=== PATIENT | female | born 1995 | race American Indian/Alaskan Native ===

== ENCOUNTER 2016-11-03 15:02 | Outpatient (CLI) | payer MEDICAID ==
[2016-11-03 16:51] VITALS: BP 128/64
== END 2016-11-03 17:37 | disposition home or self-care (01) ==
LOC: TRG 15:02
PROVIDERS: ATTEND Obstetrics & Gynecology
DX: O47.1 False labor at or after 37 completed weeks of gestation (principal); Z3A.37 37 weeks gestation of pregnancy
CPT/HCPCS: 59025

== ENCOUNTER 2016-11-12 21:53 | Outpatient (CLI) | payer MEDICAID ==
[2016-11-12 22:16] VITALS: BP 125/80
== END 2016-11-12 22:46 | disposition home or self-care (01) ==
LOC: TRG 21:53
PROVIDERS: ATTEND Obstetrics & Gynecology
DX: O47.1 False labor at or after 37 completed weeks of gestation (principal); Z3A.38 38 weeks gestation of pregnancy
CPT/HCPCS: 59025

== ENCOUNTER 2016-11-16 01:24 | Inpatient (IN) | payer MEDICAID ==
[2016-11-16] MEDS ORDERED: LACTATED RINGERS 2,000 ML ONE (04:54)
[2016-11-16] MEDS ORDERED: SUBLIMAZE ONE (05:43)
[2016-11-16] MEDS ORDERED: SUBLIMAZE IV ONE (05:46)
[2016-11-16] MEDS ORDERED: LACTATED RINGERS 1,000 ML IV ONE (05:46)
--- NOTE | 2016-11-16 06:13 | History and Physical Report ---
History of Present Illness Date of examination: 11/16/16 Date of admission: 11/16/16 04:45 Chief complaint: Painful contractions History of present illness: 21 y/o at 39+1 weeks gestation presents in active labor, she is a [facility] patient. course has been unremarkable per patient. 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 denies: gonorrhea, hepatitis B, hepatitis C, herpes, HIV, syphilis Social history: single, full code. denies: smoking, alcohol abuse, prescription drug abuse, IV drug use - Obstetrical History Expected Date of Delivery: 11/22/16 Actual Gestation: 39 Week(s) 1 Day(s) : 1 Para: 0 Medications and Allergies Allergies Allergy/AdvReac Type Severity Reaction Status Date / Time No Known Allergies Allergy Verified 11/03/16 16:36 Home Medications Medication Instructions Recorded Confirmed Last Taken Type Amoxicillin PO Q8HR 11/16/16 11/15/16 20:00 History Active Meds: Active Medications Lactated Ringer's (Lactated Ringers) 1,000 mls @ 999 mls/hr IV BOLUS ONE Stop: 11/16/16 06:46 Last Admin: 11/16/16 06:06 Dose: 999 mls/hr Measles/Mumps/Rubella Vaccine Live (M-M-R Ii Vaccine) 0.5 ml SUB-Q .ONCE ONE Stop: 11/17/16 06:01 Review of Systems Constitutional: no fever, no chills, no weakness, no chronic headaches Cardiovascular: no chest pain, no orthopnea, no palpitations, no syncope, no lightheadedness, no shortness of breath, no dyspnea on exertion, no high blood pressure Respiratory: no cough with sputum, no shortness of breath, no dyspnea on exertion Gastrointestinal: abdominal pain (Painful regular contractions), no nausea, no vomiting Genitourinary: no vaginal bleeding, no vaginal discharge, no leakage of fluid - Vital Signs Vital signs: Vital Signs Temp Resp 97.0 F L 18 11/16/16 05:09 11/16/16 05:09 Temp Pulse Resp BP Pulse Ox 97.0 F L 90 18 133/85 11/16/16 05:09 11/16/16 05:38 11/16/16 05:59 11/16/16 05:38 - Physical Exam Abdomen: Positive: normal appearance, soft. Negative: distention, tenderness, guarding, rigidity Genitourinary (Female): Positive: normal external genitalia Uterus: Positive: enlarged (EFW ~ 3400) Extremities: Positive: normal - Obstetrical FHR: category 1 Cervical Dilatation: 5 (per RN exam) Results All other labs normal. Assessment and Plan A: 21 y/o at 39+1 wks presents in active labour -cat 1 tracing P: -Admit -Obtain routine labs -Epidural when necessary -Anticipate normal vaginal delivery - Patient Problems (1) 39 weeks gestation of Current Visit: Yes Status: Acute (2) Active labor at term Current Visit: Yes Status: Acute
[2016-11-16] MEDS ORDERED: BRETHINE SUB-Q PRN (06:14)
[2016-11-16] MEDS ORDERED: MINERAL OIL PO PRN (06:14)
[2016-11-16] MEDS ORDERED: ePHEDrine SULFATE IV PRN ×2 (06:14→06:59)
[2016-11-16] MEDS ORDERED: BRETHINE IVP PRN (06:14)
[2016-11-16] MEDS ORDERED: XYLOCAINE 2% INFILTRATI ONE (06:14)
[2016-11-16 06:56] LABS: Mean Corpuscular HGB Conc 30 % (30-34); Mean Corpuscular Volume 76 fl (79-97); Red Blood Count 3.78 M/mm3 (3.65-5.03); Red Cell Distribution Width 17.6 % (13.2-15.2); White Blood Count 14.3 K/mm3 (4.5-11.0)
--- NOTE | 2016-11-16 06:58 | Anesthesia Consultation ---
Anesthesia Consult and Med Hx Date of service: 11/16/16 - Airway Anesthetic Teeth Evaluation: Good ROM Head & Neck: Adequate Mental/Hyoid Distance: Adequate Mallampati Class: Class II Intubation Access Assessment: Probably Good - Pre-Operative Health Status ASA Pre-Surgery Classification: ASA2 Proposed Anesthetic Plan: Epidural, Spinal - Pulmonary Hx Asthma: No COPD: No Hx Pneumonia: No - Cardiovascular System Hx Hypertension: No - Central Nervous System Hx Seizures: No Hx Psychiatric Problems: No - Endocrine Hx Renal Disease: No Hx End Stage Renal Disease: No Hx Hypothyroidism: No Hx Hyperthyroidism: No - Hematic Hx Anemia: Yes Hx Sickle Cell Disease: No - Other Systems Hx Alcohol Use: No
[2016-11-16] MEDS ORDERED: NARCAN 2 MG/2 ML IV PRN (06:59)
[2016-11-16] MEDS ORDERED: PITOCin/NS 30 UNIT/500ML 30 UNITS/500 ML BAG IV SCH ×2 (07:00)
[2016-11-16] MEDS ORDERED: PITOCin/NS 20 UNIT/1000ML DRIP 20 UNITS/1,000 ML BAG IV SCH ×2 (07:00→15:00)
[2016-11-16] MEDS ORDERED: fentaNYL-BUPIV 2 MCG/ML-0.125% 200 MCG/100 ML BAG EPIDURAL SCH (07:00)
[2016-11-16] MEDS ORDERED: LACTATED RINGERS 1,000 ML IV SCH (07:00)
[2016-11-16 07:17] LABS: Hematocrit 28.6 % (30.3-42.9); Hemoglobin 8.5 gm/dl (10.1-14.3); Mean Corpuscular Hemoglobin 23 pg (28-32)
[2016-11-16] MEDS ORDERED: ePHEDrine SULFATE ONE (07:23)
[2016-11-16] MEDS ORDERED: ZOFRAN ONE (09:17)
[2016-11-16] MEDS ORDERED: ZOFRAN IV PRN ×2 (10:00→14:28)
[2016-11-16 12:03] LABS: Platelet Count 195 K/mm3 (140-440)
--- NOTE | 2016-11-16 14:27 | Procedure Note ---
OB Delivery Note - Delivery Date of Delivery: 11/16/16 Surgeon: JENNY WHALEN Estimated blood loss: 200cc - Vaginal Delivery presentation: vertex Delivery position: OA Intrapartum events: none Delivery induction: none Delivery augmentation: rupture of membranes Delivery monitor: external FHT, external uterine Route of delivery: Delivery placenta: spontaneous Delivery cord: nuchal cord, 3 umbilical vessels Episiotomy: none Delivery laceration: 1st degree (left labial - not bleeding, not repaired) Anesthesia: epidural - Infant A at 1 minute: 8 at 5 minutes: 9 Infant Gender: Male (2982gms)
[2016-11-16] MEDS ORDERED: LANSINOH TP PRN (14:28)
[2016-11-16] MEDS ORDERED: NORCO 5/325 PO PRN (14:28)
[2016-11-16] MEDS ORDERED: DULCOLAX PR PRN (14:28)
[2016-11-16] MEDS ORDERED: TUCKS PAD TP PRN (14:28)
[2016-11-16] MEDS ORDERED: BENADRYL PO PRN (14:28)
[2016-11-16] MEDS ORDERED: DERMOPLAST TP PRN (14:28)
[2016-11-16] MEDS ORDERED: MILK OF MAGNESIA PO PRN (14:28)
[2016-11-16] MEDS ORDERED: PHENERGAN PO PRN (14:28)
[2016-11-16] MEDS ORDERED: PHENERGAN PR PRN (14:28)
[2016-11-16] MEDS ORDERED: TYLENOL PO PRN (14:28)
[2016-11-16] MEDS ORDERED: SODIUM CHLORIDE FLUSH SYRINGE 10 ML IV NR (15:00)
[2016-11-16] MEDS: MOTRIN PO SCH (22:20)
[2016-11-16] MEDS: COLACE PO SCH (22:21)
[2016-11-16] MEDS: FEOSOL PO SCH (22:21)
[2016-11-17 03:15] LABS: Hematocrit 24.9 % (30.3-42.9); Hemoglobin 7.5 gm/dl (10.1-14.3)
[2016-11-17] MEDS: MOTRIN PO SCH ×2 (04:02→09:00)
[2016-11-17] MEDS ORDERED: M-M-R II VACCINE SUB-Q ONE (06:00)
[2016-11-17] MEDS: PRENATAL VITAMIN PO SCH (09:16)
[2016-11-17] MEDS: COLACE PO SCH ×2 (09:16→22:00)
[2016-11-17] MEDS: FEOSOL PO SCH ×2 (09:16→22:00)
--- NOTE | 2016-11-17 10:36 | Progress Note ---
Assessment and Plan - Patient Problems (1) (normal spontaneous vaginal delivery) Onset Date: 11/17/16 Current Visit: Yes Status: Resolved Plan to address problem: A: s/p - PPD #1 Doing well Asymptomatic anemia P: May go home tomorrow Subjective - Subjective Date of service: 11/17/16 Principal diagnosis: s/p - PPD #1 Interval history: Pt is feeling well without complaints. Bleeding improved. Patient reports: appetite normal, voiding normally, pain well controlled, flatus , ambulating normally Allyn: doing well, bottle feeding Objective - Vital Signs Latest vital signs: Vital Signs Temp Pulse Pulse Pulse Resp BP BP 11/17/16 07:50 98.2 F 74 16 110/74 11/17/16 01:00 98.1 F 81 18 11/16/16 22:20 18 11/16/16 19:50 99.2 F 102 H 18 11/16/16 16:25 99.4 F 88 20 11/16/16 16:00 99.6 F 18 11/16/16 15:50 91 H 129/73 11/16/16 15:35 109 H 128/77 11/16/16 15:20 96 H 129/74 11/16/16 15:05 105 H 125/75 11/16/16 14:50 106 H 126/73 11/16/16 14:35 110 H 135/78 11/16/16 14:20 99.1 F 107 H 18 158/90 11/16/16 14:05 115 H 141/91 11/16/16 13:50 94 H 135/75 11/16/16 13:36 146 H 125/91 11/16/16 13:20 118 H 158/77 11/16/16 13:05 117 H 172/74 11/16/16 13:03 131 H 193/97 11/16/16 13:01 146 H 207/94 11/16/16 12:59 123 H 177/93 11/16/16 12:56 108 H 150/83 11/16/16 12:54 110 H 141/76 11/16/16 12:52 112 H 139/77 11/16/16 12:50 115 H 141/83 11/16/16 12:49 99.9 F H 18 11/16/16 12:48 107 H 141/83 11/16/16 12:47 100 H 142/69 11/16/16 12:44 122 H 140/84 11/16/16 12:43 109 H 129/81 11/16/16 12:40 118 H 164/85 11/16/16 12:38 121 H 160/80 11/16/16 12:36 99 H 151/85 11/16/16 12:34 112 H 145/82 11/16/16 12:32 114 H 141/78 11/16/16 12:30 105 H 144/80 11/16/16 12:28 107 H 144/82 11/16/16 12:26 115 H 145/89 11/16/16 12:24 107 H 142/91 11/16/16 12:22 115 H 140/95 11/16/16 12:20 115 H 144/99 11/16/16 12:18 106 H 138/88 11/16/16 12:16 115 H 140/85 11/16/16 12:14 103 H 133/83 11/16/16 12:12 111 H 144/91 11/16/16 12:10 116 H 146/94 11/16/16 12:09 111 H 138/88 11/16/16 12:06 106 H 142/65 11/16/16 12:04 113 H 134/70 11/16/16 12:02 117 H 148/73 11/16/16 12:00 108 H 153/76 11/16/16 11:58 109 H 150/70 11/16/16 11:56 101 H 145/69 11/16/16 11:54 105 H 147/66 11/16/16 11:52 112 H 154/72 11/16/16 11:50 104 H 145/67 11/16/16 11:48 102 H 150/68 11/16/16 11:46 108 H 142/67 11/16/16 11:44 103 H 144/71 11/16/16 11:42 111 H 145/71 11/16/16 11:40 111 H 143/68 11/16/16 11:38 105 H 146/69 11/16/16 11:36 106 H 139/60 11/16/16 11:34 99 H 145/69 11/16/16 11:32 100 H 147/69 11/16/16 11:30 102 H 142/68 11/16/16 11:28 100 H 140/68 11/16/16 11:26 101 H 140/71 11/16/16 11:24 101 H 142/74 11/16/16 11:22 100 H 146/75 11/16/16 11:20 105 H 140/71 11/16/16 11:18 96 H 141/65 11/16/16 11:17 106 H 141/65 11/16/16 11:15 112 H 137/56 11/16/16 11:13 111 H 139/67 11/16/16 11:10 106 H 138/77 11/16/16 11:09 104 H 134/86 11/16/16 11:08 108 H 11/16/16 11:07 95 H 128/60 11/16/16 11:04 102 H 134/73 11/16/16 11:03 101 H 11/16/16 11:02 102 H 127/71 11/16/16 11:00 100 H 130/75 11/16/16 10:58 98 H 128/72 11/16/16 10:56 101 H 132/75 11/16/16 10:54 100 H 132/71 11/16/16 10:53 94 H 11/16/16 10:52 99 H 127/71 11/16/16 10:50 100 H 128/67 11/16/16 10:48 91 H 131/69 11/16/16 10:46 95 H 126/68 11/16/16 10:44 92 H 130/71 11/16/16 10:43 92 H 11/16/16 10:42 92 H 127/71 11/16/16 10:40 99 H 128/71 11/16/16 10:38 96 H 125/69 11/16/16 10:36 91 H 124/69 11/16/16 10:34 96 H 126/68 11/16/16 10:33 91 H BP Pulse Ox 11/17/16 07:50 11/17/16 01:00 119/63 11/16/16 22:20 11/16/16 19:50 126/68 11/16/16 16:25 135/77 11/16/16 16:00 11/16/16 15:50 11/16/16 15:35 11/16/16 15:20 11/16/16 15:05 11/16/16 14:50 11/16/16 14:35 11/16/16 14:20 11/16/16 14:05 11/16/16 13:50 11/16/16 13:36 11/16/16 13:20 11/16/16 13:05 11/16/16 13:03 11/16/16 13:01 11/16/16 12:59 11/16/16 12:56 11/16/16 12:54 11/16/16 12:52 11/16/16 12:50 11/16/16 12:49 11/16/16 12:48 11/16/16 12:47 11/16/16 12:44 11/16/16 12:43 11/16/16 12:40 11/16/16 12:38 11/16/16 12:36 11/16/16 12:34 11/16/16 12:32 11/16/16 12:30 11/16/16 12:28 11/16/16 12:26 11/16/16 12:24 11/16/16 12:22 11/16/16 12:20 11/16/16 12:18 11/16/16 12:16 11/16/16 12:14 11/16/16 12:12 11/16/16 12:10 11/16/16 12:09 11/16/16 12:06 11/16/16 12:04 11/16/16 12:02 11/16/16 12:00 11/16/16 11:58 11/16/16 11:56 11/16/16 11:54 11/16/16 11:52 11/16/16 11:50 11/16/16 11:48 11/16/16 11:46 11/16/16 11:44 11/16/16 11:42 11/16/16 11:40 11/16/16 11:38 11/16/16 11:36 11/16/16 11:34 11/16/16 11:32 11/16/16 11:30 11/16/16 11:28 11/16/16 11:26 11/16/16 11:24 11/16/16 11:22 11/16/16 11:20 11/16/16 11:18 11/16/16 11:17 11/16/16 11:15 11/16/16 11:13 100 11/16/16 11:10 11/16/16 11:09 11/16/16 11:08 100 11/16/16 11:07 11/16/16 11:04 11/16/16 11:03 100 11/16/16 11:02 11/16/16 11:00 11/16/16 10:58 100 11/16/16 10:56 11/16/16 10:54 11/16/16 10:53 100 11/16/16 10:52 11/16/16 10:50 11/16/16 10:48 100 11/16/16 10:46 11/16/16 10:44 11/16/16 10:43 100 11/16/16 10:42 11/16/16 10:40 11/16/16 10:38 100 11/16/16 10:36 11/16/16 10:34 11/16/16 10:33 100 Intake and Output 11/16/16 11/17/16 11/17/16 22:59 06:59 14:59 Intake Total 1280 120 Output Total 1150 300 Balance 130 120 -300 Intake: IV 800 PITOCin/NS 20 UNIT/1000ML 800 DRIP 20 units In 1,000 ml @ 250 mls/hr IV TITR JANE Rx#:[id number] Intake, Free Water 480 120 Output: Urine 1150 300 Void 1150 300 Other: Total, Output Amount 450 300 # Voids Void 1 - Exam Breasts: Present: deferred Cardiovascular: Present: Regular rate Lungs: Present: Clear to auscultation Abdomen: Present: normal appearance, soft Uterus: Present: normal, firm, fundal height below umbilicus Extremities: Present: normal - Labs Labs: Abnormal lab results 11/17/16 Range/Units 03:02 Hgb 7.5 L (10.1-14.3) gm/dl Hct 24.9 L (30.3-42.9) % Laboratory Tests 11/16/16 11/16/16 11/17/16 04:40 04:40 03:02 WBC 14.3 H RBC 3.78 Hgb 8.5 L 7.5 L Hct 28.6 L 24.9 L MCV 76 L MCH 23 L MCHC 30 RDW 17.6 H Plt Count 195 Blood Type AB POSITIVE Antibody Screen Negative
[2016-11-17] MEDS ORDERED: DEPO-PROVERA (CONTRACEPTION) IM ONE (10:37)
--- NOTE | 2016-11-17 10:53 | Progress Note ---
Subjective Date of service: 11/17/16 Principal diagnosis: s/p - PPD #1 Interval history: 1st day after normal vaginal delivery Patient is in the bed, comfortable. Pain is well controlled with pain meds. Ambulated well. No residual neurological deficit. No anesthesia complications Objective - Constitutional Vitals: Vital Signs - 12hr 11/17/16 11/17/16 01:00 07:50 Temperature 98.1 F 98.2 F Pulse Rate [ 74 Left Radial] Pulse Rate [ 81 Right From Monitor] Respiratory 18 16 Rate Blood Pressure 110/74 [Left Arm] Blood Pressure 119/63 [Right Arm] - Labs CBC & Chem 7: 11/17/16 03:02 Labs: Abnormal lab results 11/17/16 Range/Units 03:02 Hgb 7.5 L (10.1-14.3) gm/dl Hct 24.9 L (30.3-42.9) %
[2016-11-17] MEDS ORDERED: BOOSTRIX IM ONE (14:28)
[2016-11-18] MEDS: MOTRIN PO SCH ×2 (03:00→09:00)
[2016-11-18 08:35] VITALS: BP 120/89
[2016-11-18] MEDS: COLACE PO SCH (10:28)
[2016-11-18] MEDS: FEOSOL PO SCH (10:28)
[2016-11-18] MEDS: PRENATAL VITAMIN PO SCH (10:28)
[2016-11-18] MEDS ORDERED: DEPO-PROVERA (CONTRACEPTION) IM ONE (11:00)
--- NOTE | 2016-11-18 11:29 | Discharge Summary ---
Providers - Providers Date of Admission: 11/16/16 04:45 Date of discharge: 11/18/16 Attending physician: YEFRI BUCK Primary care physician: YEFRI BUCK Hospitalization Reason for admission: active labor, IUP at term Delivery: Episiotomy: none Laceration: 1st degree Other procedures: none complications: none Discharge diagnosis: IUP at term delivered [place] baby: male Hospital course: Unremarkable. Condition at discharge: Good Disposition: DISCHARGED TO HOME OR SELFCARE - Discharge Diagnoses (1) (normal spontaneous vaginal delivery) Status: Resolved Plan - Discharge Medications Prescriptions: Ferrous Sulfate [Feosol 325 MG tab] 325 mg PO BID #60 tablet Ibuprofen [Motrin 600 MG tab] 600 mg PO Q6H #30 tablet Vit-Fe Fumar-FA [ Vitamin] 1 each PO QDAY #30 tablet - Provider Discharge Summary Activity: routine, no sex for 6 weeks, no heavy lifting 4 weeks, no strenuous exercise Diet: routine Instructions: routine Additional instructions: [] Smoking cessation referral if applicable(refer to patient education folder for contact #) [] Refer to [facility]'s [facility] Booklet Call your doctor immediately for: * Fever > 100.5 * Heavy vaginal bleeding ( >1 pad per hour) * Severe persistent headache * Shortness of breath * Reddened, hot, painful area to leg or breast * Drainage or odor from incision. * Keep incision clean and dry at all times and follow doctor's instructions regarding bathing/showering - Follow up plan Follow up: YEFRI BUCK MD [Primary Care Provider] - 6 Weeks Forms: [facility] Discharge Summary
== END 2016-11-18 14:10 | disposition home or self-care (01) | DRG 774 ==
LOC: TRG 01:24 → LD 04:45 → TRG 04:45 → OB 16:26
PROVIDERS: ADMIT Obstetrics & Gynecology Gynecology; ATTEND Obstetrics & Gynecology Gynecology
PROC: 10E0XZZ Delivery of Products of Conception, External Approach (ICD-10-PCS; principal; 2016-11-16)
PROC: 00HU33Z Insertion of Infusion Device into Spinal Canal, Percutaneous Approach (ICD-10-PCS; 2016-11-16)
PROC: 3E0R3CZ (ICD-10-PCS; 2016-11-16)
DX: O69.81X0 Labor and delivery complicated by cord around neck, without compression, not applicable or unspecified (principal); O98.82 Other maternal infectious and parasitic diseases complicating childbirth; O70.0 First degree perineal laceration during delivery; O90.81 Anemia of the puerperium; D64.9 Anemia, unspecified; Z37.0 Single live birth; Z3A.39 39 weeks gestation of pregnancy
CPT/HCPCS: 36415; 85014; 85018; 85027; 86850; 86900; 86901; 90707; J1050; J2405; J2590; J3010; J7120

== ENCOUNTER 2019-11-16 06:49 | Emergency (ER) | payer MEDICAID ==
[2019-11-16 08:54] LABS: Basophils # (Auto) 0.1 K/mm3 (0.0-0.1); Basophils % (Auto) 1.1 % (0.0-1.8); Eosinophils % (Auto) 0.2 % (0.0-4.3); Hematocrit 37.7 % (30.3-42.9); Hemoglobin 12.2 gm/dl (10.1-14.3); Lymphocytes # (Auto) 2.4 K/mm3 (1.2-5.4); Lymphocytes % (Auto) 37.5 % (13.4-35.0); Mean Corpuscular HGB Conc 32 % (30-34); Mean Corpuscular Volume 80 fl (79-97); Monocytes # (Auto) 0.5 K/mm3 (0.0-0.8); Monocytes % (Auto) 7.3 % (0.0-7.3); Platelet Count 190 K/mm3 (140-440); Red Blood Count 4.74 M/mm3 (3.65-5.03)
[2019-11-16 08:56] LABS: Bilirubin,Urine NEG (Negative); Blood,Urine LG (Negative); Color,Urine Yellow (Yellow); Mucus,Urine 1+ /HPF
[2019-11-16 09:08] LABS: RBC,Urine > 182.0 /HPF (0.0-6.0)
[2019-11-16 09:19] LABS: Alanine Aminotransferase 8 units/L (7-56); Albumin 4.5 g/dL (3.9-5); BUN/Creatinine Ratio 24; Blood Urea Nitrogen 12 mg/dL (7-17); Hemolysis Index 9
--- NOTE | 2019-11-16 09:29 | Emergency Department Report ---
ED Female HPI - General Chief complaint: Vaginal Bleeding Stated complaint: MISCARRIAGE Time Seen by Provider: 11/16/19 09:08 Source: patient Mode of arrival: Ambulatory Limitations: No Limitations - History of Present Illness Initial comments: This is a 24-year-old -0-0-1 who presents the ED at approximately 8 weeks states last menstrual period as September 15, 2019. Patient states she received care at [place] [facility] Dr. Moreland as her OB. Patient presents here for vaginal bleeding that began this morning. Patient states she started experiencing light vaginal bleed with no abdominal pain cramping dysuria or fever MD Complaint: vaginal bleeding - Related Data Home Medications Medication Instructions Recorded Confirmed Last Taken Amoxicillin PO Q8HR 11/16/16 11/15/16 20:00 Previous Rx's Medication Instructions Recorded Last Taken Type Ferrous Sulfate [Feosol 325 MG tab] 325 mg PO BID #60 tablet 11/18/16 Unknown Rx Ibuprofen [Motrin 600 MG tab] 600 mg PO Q6H #30 tablet 11/18/16 Unknown Rx Vit-Fe Fumar-FA [ 1 each PO QDAY #30 tablet 11/18/16 Unknown Rx Vitamin] Allergies Allergy/AdvReac Type Severity Reaction Status Date / Time No Known Allergies Allergy Verified 11/03/16 16:36 ED Review of Systems ROS: Stated complaint: MISCARRIAGE Other details as noted in HPI Comment: All other systems reviewed and negative ED Past Medical Hx - Past Medical History Hx Hypertension: No Hx Congestive Heart Failure: No Hx Diabetes: No Hx Deep Vein Thrombosis: No Hx Renal Disease: No Hx Sickle Cell Disease: No Hx Seizures: No Hx Asthma: No Hx COPD: No Hx HIV: No Additional medical history: ADHD - Surgical History Past Surgical History?: No Additional Surgical History: B/L breast lumpectomies (benign) - Social History Smoking Status: Never Smoker Substance Use Type: None - Medications Home Medications: Home Medications Medication Instructions Recorded Confirmed Last Taken Type Amoxicillin PO Q8HR 11/16/16 11/15/16 20:00 History Ferrous Sulfate [Feosol 325 MG tab] 325 mg PO BID #60 tablet 11/18/16 Unknown Rx Ibuprofen [Motrin 600 MG tab] 600 mg PO Q6H #30 tablet 11/18/16 Unknown Rx Vit-Fe Fumar-FA [ 1 each PO QDAY #30 tablet 11/18/16 Unknown Rx Vitamin] ED Physical Exam - General Limitations: No Limitations General appearance: alert, in no apparent distress - Head Head exam: Present: atraumatic, normocephalic - Eye Eye exam: Present: normal appearance - ENT ENT exam: Present: mucous membranes moist - Neck Neck exam: Present: normal inspection - Respiratory Respiratory exam: Present: normal lung sounds bilaterally. Absent: respiratory distress - Cardiovascular Cardiovascular Exam: Present: regular rate, normal rhythm. Absent: systolic murmur, diastolic murmur, rubs, gallop - GI/Abdominal GI/Abdominal exam: Present: soft, normal bowel sounds. Absent: distended, tenderness, guarding, mass - Extremities Exam Extremities exam: Present: normal inspection - Back Exam Back exam: Present: normal inspection, full ROM. Absent: CVA tenderness (R), CVA tenderness (L) - Neurological Exam Neurological exam: Present: alert, oriented X3 - Psychiatric Psychiatric exam: Present: normal affect, normal mood - Skin Skin exam: Present: warm, dry, intact, normal color. Absent: rash ED Course Vital Signs 11/16/19 08:12 Temperature 98.3 F Pulse Rate 91 H Respiratory 17 Rate Blood Pressure 103/57 O2 Sat by Pulse 100 Oximetry ED Medical Decision Making - Lab Data Result diagrams: 11/16/19 08:33 11/16/19 08:33 Laboratory Last Values WBC 6.3 K/mm3 (4.5-11.0) 11/16/19 08:33 RBC 4.74 M/mm3 (3.65-5.03) 11/16/19 08:33 Hgb 12.2 gm/dl (10.1-14.3) 11/16/19 08:33 Hct 37.7 % (30.3-42.9) 11/16/19 08:33 MCV 80 fl (79-97) 11/16/19 08:33 MCH 26 pg (28-32) L 11/16/19 08:33 MCHC 32 % (30-34) 11/16/19 08:33 RDW 13.0 % (13.2-15.2) L 11/16/19 08:33 Plt Count 190 K/mm3 (140-440) 11/16/19 08:33 Lymph % (Auto) 37.5 % (13.4-35.0) H 11/16/19 08:33 [place] % (Auto) 7.3 % (0.0-7.3) 11/16/19 08:33 Eos % (Auto) 0.2 % (0.0-4.3) 11/16/19 08:33 Baso % (Auto) 1.1 % (0.0-1.8) 11/16/19 08:33 Lymph # 2.4 K/mm3 (1.2-5.4) 11/16/19 08:33 [place] # 0.5 K/mm3 (0.0-0.8) 11/16/19 08:33 Eos # 0.0 K/mm3 (0.0-0.4) 11/16/19 08:33 Baso # 0.1 K/mm3 (0.0-0.1) 11/16/19 08:33 Seg Neutrophils % 53.9 % (40.0-70.0) 11/16/19 08:33 Seg Neutrophils # 3.4 K/mm3 (1.8-7.7) 11/16/19 08:33 Sodium 136 mmol/L (137-145) L 11/16/19 08:33 Potassium 3.8 mmol/L (3.6-5.0) 11/16/19 08:33 Chloride 103.0 mmol/L (98-107) 11/16/19 08:33 Carbon Dioxide 20 mmol/L (22-30) L 11/16/19 08:33 Anion Gap 17 mmol/L 11/16/19 08:33 BUN 12 mg/dL (7-17) 11/16/19 08:33 Creatinine 0.5 mg/dL (0.7-1.2) L 11/16/19 08:33 Estimated GFR > 60 ml/min 11/16/19 08:33 BUN/Creatinine Ratio 24 % 11/16/19 08:33 Glucose 82 mg/dL (65-100) 11/16/19 08:33 Calcium 9.0 mg/dL (8.4-10.2) 11/16/19 08:33 Total Bilirubin 0.50 mg/dL (0.1-1.2) 11/16/19 08:33 AST 16 units/L (5-40) 11/16/19 08:33 ALT 8 units/L (7-56) 11/16/19 08:33 Alkaline Phosphatase 32 units/L (35-129) L 11/16/19 08:33 Total Protein 7.5 g/dL (6.3-8.2) 11/16/19 08:33 Albumin 4.5 g/dL (3.9-5) 11/16/19 08:33 Albumin/Globulin Ratio 1.5 % 11/16/19 08:33 HCG, Quant [id number] mIU/mL (0-4) H 11/16/19 08:33 Urine Color Yellow (Yellow) 11/16/19 08:31 Urine Turbidity Clear (Clear) 11/16/19 08:31 Urine pH 6.0 (5.0-7.0) 11/16/19 08:31 Ur Specific [place] 1.027 (1.003-1.030) 11/16/19 08:31 Urine Protein 30 mg/dl mg/dL (Negative) 11/16/19 08:31 Urine Glucose (UA) Neg mg/dL (Negative) 11/16/19 08:31 Urine Ketones Tr mg/dL (Negative) 11/16/19 08:31 Urine Blood Lg (Negative) 11/16/19 08:31 Urine Nitrite Neg (Negative) 11/16/19 08:31 Urine Bilirubin Neg (Negative) 11/16/19 08:31 Urine Urobilinogen 2.0 mg/dL (<2.0) 11/16/19 08:31 Ur Leukocyte Esterase Tr (Negative) 11/16/19 08:31 Urine WBC (Auto) 3.0 /HPF (0.0-6.0) 11/16/19 08:31 Urine RBC (Auto) > 182.0 /HPF (0.0-6.0) 11/16/19 08:31 U Epithel Cells (Auto) 1.0 /HPF (0-13.0) 11/16/19 08:31 Urine Mucus 1+ /HPF 11/16/19 08:31 Blood Type AB POSITIVE 11/16/19 08: Antibody Screen Negative 11/16/19 08:33 - Radiology Data Radiology results: report reviewed, image reviewed ULTRASOUND OBSTETRIC INDICATION: Vaginal bleeding. Clinical gestational age of 8 weeks, 6 days. TECHNIQUE: Transabdominal and Transvaginal. COMPARISON: None available. FINDINGS: GESTATIONAL SAC: Well-defined oval shape and intrauterine in location. A small to moderate subchorionic hemorrhage measures up to 1.4 cm. YOLK SAC: No significant abnormality. EMBRYO/FETUS: No significant abnormality. - [place]-Rump Length = 0.9 cm = 6 weeks, 6 day(s). - Heart Rate = 128 beats per minute. ADNEXA: No significant abnormality. FREE FLUID: None. ADDITIONAL FINDINGS: None. IMPRESSION: 1. Single, living intrauterine with estimated sonographic age of 8 weeks, 2 day(s). 2. Small to moderate subchorionic hemorrhage. Signer Name: Fidel Del Toro MD Signed: 11/16/2019 10:15 AM Workstation Name: [id number] Transcribed By: [place] Dictated By: Fidel Del Toro MD Electronically Authenticated By: Fidel Del Toro MD Signed Date/Time: 11/16/19 1015 - Medical Decision Making 24-year-old female presents to ED with vaginal bleeding in ED course: Pt received ultra sound, CBC, urinalysis, test and quantitative ED All labs within normal limits, quantitative elevated matching gestation age Patient states that bleeding is resolved w a day while in ED ,she is went into the bathroom to check Ultrasound shows single intrauterine at 8 weeks see reported above Vital signs normalized patient is in no acute distress. I discussed with the patient if follow-up with her [facility]. I have discussed with patient to abstain from intercourse until further advised by her [facility] I discussed all labs and ultrasound findings with the patient. I discussed with the patient that he if bleeding worsens or new symptoms develop to return to ED immediately Critical care attestation.: If time is entered above; I have spent that time in minutes in the direct care of this critically ill patient, excluding procedure time. ED Disposition Clinical Impression: Vaginal bleeding during , Subchorionic hemorrhage in first trimester Disposition: DC-01 TO HOME OR SELFCARE Is pt being admited?: No Does the pt Need Aspirin: No Condition: Stable Instructions: Threatened Miscarriage (ED), (ED) Additional Instructions: Make sure to follow up with the obgyn as discussed. Avoid sexual intercourse until you have followed up with your [facility] or further instructed by your [facility]. If bleeding worsens or you start experiencing new onset of symptoms such as abdominal pain please return to ED immediately Referrals: PRIMARY CAREMD [Primary Care Provider] - 3-5 Days [facility] [Outside] - 3-5 Days Forms: Accompanied Note, Work/School Release Form(ED) Time of Disposition: 10:46
--- NOTE | 2019-11-16 10:19 | Ultrasound Report ---
ULTRASOUND OBSTETRIC INDICATION: Vaginal bleeding. Clinical gestational age of 8 weeks, 6 days. TECHNIQUE: Transabdominal and Transvaginal. COMPARISON: None available. FINDINGS: GESTATIONAL SAC: Well-defined oval shape and intrauterine in location. A small to moderate subchorion ic hemorrhage measures up to 1.4 cm. YOLK SAC: No significant abnormality. EMBRYO/FETUS: No significant abnormality. - [place]-Rump Length = 0.9 cm = 6 weeks, 6 day(s). - Heart Rate = 128 beats per minute. ADNEXA: No significant abnormality. FREE FLUID: None. ADDITIONAL FINDINGS: None. IMPRESSION: 1. Single, living intrauterine with estimated sonographic age of 8 weeks, 2 day(s). 2. Small to moderate subchorionic hemorrhage. Signer Name: Fidel Del Toro MD Signed: 11/16/2019 10:15 AM Workstation Name: [id number]
--- NOTE | 2019-11-16 10:19 | Ultrasound Report ---
ULTRASOUND OBSTETRIC INDICATION: Vaginal bleeding. Clinical gestational age of 8 weeks, 6 days. TECHNIQUE: Transabdominal and Transvaginal. COMPARISON: None available. FINDINGS: GESTATIONAL SAC: Well-defined oval shape and intrauterine in location. A small to moderate subchorion ic hemorrhage measures up to 1.4 cm. YOLK SAC: No significant abnormality. EMBRYO/FETUS: No significant abnormality. - [place]-Rump Length = 0.9 cm = 6 weeks, 6 day(s). - Heart Rate = 128 beats per minute. ADNEXA: No significant abnormality. FREE FLUID: None. ADDITIONAL FINDINGS: None. IMPRESSION: 1. Single, living intrauterine with estimated sonographic age of 8 weeks, 2 day(s). 2. Small to moderate subchorionic hemorrhage. Signer Name: Fidel Del Toro MD Signed: 11/16/2019 10:15 AM Workstation Name: [id number]
[2019-11-16 11:15] VITALS: BP 101/61
== END 2019-11-16 11:03 | disposition home or self-care (01) ==
LOC: ED 06:49
DX: O20.9 Hemorrhage in early pregnancy, unspecified (principal); F90.9 Attention-deficit hyperactivity disorder, unspecified type; Z3A.08 8 weeks gestation of pregnancy; Z98.890 Other specified postprocedural states; Z79.1 Long term (current) use of non-steroidal anti-inflammatories (NSAID); Z79.2 Long term (current) use of antibiotics; Z79.899 Other long term (current) drug therapy
CPT/HCPCS: 36415; 76801; 76817; 80053; 81001; 84702; 85025; 86850; 86900; 86901

== ENCOUNTER 2020-05-21 18:26 | Emergency (ER) | payer MEDICAID ==
[2020-05-21 18:43] VITALS: BP 125/91
--- NOTE | 2020-05-21 22:09 | Emergency Department Report ---
ED Dizziness HPI - General Chief Complaint: Headache Stated Complaint: HEADACHE/WATERY EYE/STD Time Seen by Provider: 05/21/20 20:05 Source: patient Mode of arrival: Ambulatory Limitations: No Limitations - History of Present Illness Initial Comments: 25-year-old F [place] female third trimester presents emergency department complaining a few day history of just worsening dull throbbing headache not responding to her fluids however she has not yet tried any [id number] medication she did buy a headache combo medication but did not take it due to her not normal she can take during her . She is due on July 01, 2020 and has been following up with her [facility] . She reports no vaginal bleeding no vaginal discharge no chest pain or palpitations reports no shortness of breath but does get a headache and and dizziness. She reports no hemoptysis no hematemesis no hematuria. MD Complaint: dizziness History of Same: No History of Trauma: No Severity: mild Improves With: rest Worsens With: exertion Associated Symptoms: denies: chest pain, confusion, cough, diaphoresis, fever/chills, loss of appetite, malaise, seizure, shortness of breath, syncope - Related Data Home Medications Medication Instructions Recorded Confirmed Last Taken Amoxicillin PO Q8HR 11/16/16 11/15/16 20:00 Previous Rx's Medication Instructions Recorded Last Taken Type Ferrous Sulfate [Feosol 325 MG tab] 325 mg PO BID #60 tablet 11/18/16 Unknown Rx Ibuprofen [Motrin 600 MG tab] 600 mg PO Q6H #30 tablet 11/18/16 Unknown Rx Vit-Fe Fumar-FA [ 1 each PO QDAY #30 tablet 11/18/16 Unknown Rx Vitamin] Allergies Allergy/AdvReac Type Severity Reaction Status Date / Time No Known Allergies Allergy Verified 11/03/16 16:36 ED Review of Systems ROS: Stated complaint: HEADACHE/WATERY EYE/STD Other details as noted in HPI Comment: All other systems reviewed and negative Genitourinary: other (Was also told she has trichomonas and [facility] in 6 to have her prescriptions filled in the emergency department) ED Past Medical Hx - Past Medical History Previous Medical History?: No Hx Hypertension: No Hx Congestive Heart Failure: No Hx Diabetes: No Hx Deep Vein Thrombosis: No Hx Renal Disease: No Hx Sickle Cell Disease: No Hx Seizures: No Hx Asthma: No Hx COPD: No Hx HIV: No Additional medical history: ADHD - Surgical History Past Surgical History?: Yes Additional Surgical History: B/L breast lumpectomies (benign) - Social History Smoking Status: Never Smoker Substance Use Type: None - Medications Home Medications: Home Medications Medication Instructions Recorded Confirmed Last Taken Type Amoxicillin PO Q8HR 11/16/16 11/15/16 20:00 History Ferrous Sulfate [Feosol 325 MG tab] 325 mg PO BID #60 tablet 11/18/16 Unknown Rx Ibuprofen [Motrin 600 MG tab] 600 mg PO Q6H #30 tablet 11/18/16 Unknown Rx Vit-Fe Fumar-FA [ 1 each PO QDAY #30 tablet 11/18/16 Unknown Rx Vitamin] ED Physical Exam - General Limitations: No Limitations General appearance: alert, in no apparent distress - Head Head exam: Present: atraumatic, normocephalic - Eye Eye exam: Present: normal appearance, PERRL, EOMI Pupils: Present: normal accommodation - ENT ENT exam: Present: mucous membranes moist - Neck Neck exam: Present: normal inspection - Respiratory Respiratory exam: Present: normal lung sounds bilaterally. Absent: respiratory distress - Cardiovascular Cardiovascular Exam: Present: regular rate, normal rhythm. Absent: systolic murmur, diastolic murmur, rubs, gallop - GI/Abdominal GI/Abdominal exam: Present: soft, normal bowel sounds - Extremities Exam Extremities exam: Present: normal inspection - Back Exam Back exam: Present: normal inspection - Neurological Exam Neurological exam: Present: alert, oriented X3 - Psychiatric Psychiatric exam: Present: normal affect, normal mood - Skin Skin exam: Present: warm, dry, intact, normal color. Absent: rash ED Course Vital Signs 05/21/20 18:41 Temperature 97.6 F Pulse Rate 103 H Respiratory 16 Rate Blood Pressure 125/91 [Right] O2 Sat by Pulse 100 Oximetry Critical care attestation.: If time is entered above; I have spent that time in minutes in the direct care of this critically ill patient, excluding procedure time. ED Disposition Condition: Stable Referrals: PRIMARY CARE, [Primary Care Provider] - 3-5 Days
[2020-05-21 22:25] LABS: Basophils % (Auto) 0.3 % (0.0-1.8); Eosinophils % (Auto) 0.3 % (0.0-4.3); Hematocrit 33.4 % (30.3-42.9); Hemoglobin 10.3 gm/dl (10.1-14.3); Lymphocytes # (Auto) 2.6 K/mm3 (1.2-5.4); Lymphocytes % (Auto) 23.3 % (13.4-35.0); Mean Corpuscular HGB Conc 31 % (30-34); Mean Corpuscular Volume 77 fl (79-97); Monocytes # (Auto) 0.8 K/mm3 (0.0-0.8); Monocytes % (Auto) 7.6 % (0.0-7.3); Platelet Count 289 K/mm3 (140-440); Red Blood Count 4.36 M/mm3 (3.65-5.03); Red Cell Distribution Width 15.5 % (13.2-15.2)
[2020-05-21 22:28] LABS: Blood Urea Nitrogen 5 mg/dL (7-17); Hemolysis Index 1
[2020-05-21 22:29] LABS: BUN/Creatinine Ratio 13
== END 2020-05-21 23:00 | disposition left against medical advice (07) ==
LOC: ED 18:26
DX: R51 Headache (principal); Z53.21 Procedure and treatment not carried out due to patient leaving prior to being seen by health care provider
CPT/HCPCS: 36415; 80048; 85025

== ENCOUNTER 2020-06-13 15:25 | Inpatient (IN) | payer MEDICAID ==
--- NOTE | 2020-06-13 21:53 | History and Physical Report ---
History of Present Illness Date of examination: 06/13/20 Chief complaint: Pt presents to [facility] ob triage with c/o uc times several hours. She denies leakage of vag fluid or vag bleeding and admits to + FM. History of present illness: 25 y/o AA female presents to [facility] ob triage at 37 3/7 wks with c/o uc times several hours. Pt states she initiated her pnc at [facility] at 6 wks. She states her preg was uneventful. Pt is not aware of her GBS status. She was found to be in active labor and was admitted to L&D. Pt's records are not available. Past History Past Medical History: no pertinent history Past Surgical History: other (breast biopsy in 2014) Family/Genetic History: diabetes, heart disease, hypertension Social history: no significant social history - Obstetrical History Expected Date of Delivery: 07/01/20 Actual Gestation: 37 Week(s) 3 Day(s) : 2 Para: 1 Hx # Term Pregnancies: 1 Medications and Allergies Allergies Allergy/AdvReac Type Severity Reaction Status Date / Time No Known Allergies Allergy Verified 11/03/16 16:36 Home Medications Medication Instructions Recorded Confirmed Last Taken Type Amoxicillin PO Q8HR 11/16/16 11/15/16 20:00 History Ferrous Sulfate [Feosol 325 MG tab] 325 mg PO BID #60 tablet 11/18/16 Unknown Rx Ibuprofen [Motrin 600 MG tab] 600 mg PO Q6H #30 tablet 11/18/16 Unknown Rx Vit-Fe Fumar-FA [ 1 each PO QDAY #30 tablet 11/18/16 Unknown Rx Vitamin] Review of Systems All systems: negative Eyes: deferred Ears, nose, mouth and throat: deferred Breasts: normal Genitourinary: normal appearance Rectal Exam: deferred - Vital Signs Vital signs: Vital Signs Pulse BP 87 110/67 06/13/20 16:14 06/13/20 16:14 Temp Pulse Resp BP Pulse Ox 98.5 F 87 20 110/67 06/13/20 16:17 06/13/20 16:14 06/13/20 16:17 06/13/20 16:14 - Physical Exam Breasts: Positive: normal Cardiovascular: Regular rate Lungs: Positive: Clear to auscultation Abdomen: Positive: normal appearance, soft, normal bowel sounds, other (gravid) Genitourinary (Female): Positive: normal external genitalia, normal perenium Vulva: both: normal Vagina: Positive: normal moisture Uterus: Positive: normal size, normal contour, other (gravid) Adnexa: both: normal Anus/Rectum: Positive: normal perianal skin Extremities: Positive: normal - Obstetrical FHR: auscultation normal, category 1 Uterine Contraction Monitor Mode: External Cervical Dilatation: 4 Cervical Effacement Percentage: 60 station: -1 Uterine Contraction Frequency (min): irreg Uterine Contraction Pattern: Irregular Uterine Tone Measurement Phase: Resting Uterine Contraction Intensity: Mild Results All other labs normal. Assessment and Plan A:IUP@ 37. 3 wks GBS unknown P: Admit to L&D Continuous monitoring GBS prophylaxis Pain med/Epidural prn Anticipate - Patient Problems (1) Active labor at term Current Visit: No Status: Acute (2) GBS screening not performed Current Visit: Yes Status: Acute
[2020-06-13] MEDS ORDERED: MINERAL OIL 30 ML ORAL LIQD PO PRN (22:23)
[2020-06-13] MEDS ORDERED: BUTORPHANOL 2 MG/1 ML INJ IV PRN ×2 (22:23)
[2020-06-13] MEDS ORDERED: ePHEDrine SULFATE 50 MG/1 ML INJ IV PRN (22:23)
[2020-06-13] MEDS ORDERED: LIDOCAINE (2%) 20 MG/1 ML VIAL 20 ML MDV INFILTRATI ONE (22:23)
[2020-06-13] MEDS ORDERED: ONDANSETRON 4 MG/2 ML INJ IV PRN (22:23)
[2020-06-13] MEDS ORDERED: TERBUTALINE 1 MG/1 ML INJ SUB-Q PRN (22:23)
[2020-06-13] MEDS ORDERED: fentaNYL 100 MCG/2 ML INJ IV PRN (22:23)
[2020-06-13] MEDS ORDERED: OXYTOCIN DRIP 30 UNITS/500 ML BAG IV SCH ×2 (23:00)
[2020-06-13] MEDS: LACTATED RINGERS 1,000 ML IV SCH (23:00)
[2020-06-13 23:49] LABS: Hematocrit 32.1 % (30.3-42.9); Hemoglobin 9.8 gm/dl (10.1-14.3); Mean Corpuscular HGB Conc 31 % (30-34); Mean Corpuscular Volume 73 fl (79-97); Platelet Count 304 K/mm3 (140-440); Red Blood Count 4.39 M/mm3 (3.65-5.03); Red Cell Distribution Width 17.3 % (13.2-15.2)
[2020-06-14] MEDS: LACTATED RINGERS 1,000 ML IV SCH (03:47)
[2020-06-14] MEDS ORDERED: AMPICILLIN/NS 2 GM/100 ML 2 GM/100 ML BAG IV ONE (04:26)
[2020-06-14] MEDS ORDERED: ceFAZolin/NS 1 GM/50 ML 1 GM/50 ML BAG IV SCH (06:00)
--- NOTE | 2020-06-14 07:23 | Progress Note ---
Assessment and Plan A: IUP@term GBS unknown P: Continue monitoring AROM cl fluid Anticipate - Patient Problems (1) Active labor at term Current Visit: No Status: Acute (2) GBS screening not performed Current Visit: Yes Status: Acute Subjective - Subjective Date of service: 06/14/20 Interval history: 25 y/o AA female presents to [facility] ob triage at 37 3/7 wks with c/o uc times several hours. Pt states she initiated her pnc at [facility] at 6 wks. She states her preg was uneventful. Pt is not aware of her GBS status. She was found to be in active labor and was admitted to L&D. Pt's records are not available. Patient reports: movement normal Objective - Vital Signs Vital Signs: Vital Signs - 12hr 06/13/20 06/13/20 06/13/20 22:45 23:36 23:41 Temperature 99.1 F Pulse Rate 85 89 85 Respiratory 18 Rate Blood Pressure 119/76 [Right] O2 Sat by Pulse 100 100 100 Oximetry 06/13/20 06/13/20 06/13/20 23:44 23:46 23:51 Temperature Pulse Rate 83 91 H 85 Respiratory Rate Blood Pressure [Right] O2 Sat by Pulse 92 100 100 Oximetry 06/13/20 06/14/20 06/14/20 23:56 00:01 00:06 Temperature Pulse Rate 84 84 87 Respiratory Rate Blood Pressure [Right] O2 Sat by Pulse 100 100 100 Oximetry 06/14/20 06/14/20 06/14/20 00:09 00:11 00:16 Temperature Pulse Rate 93 H 87 84 Respiratory Rate Blood Pressure [Right] O2 Sat by Pulse 88 98 100 Oximetry 06/14/20 06/14/20 06/14/20 00:21 00:26 00:31 Temperature Pulse Rate 87 89 84 Respiratory Rate Blood Pressure [Right] O2 Sat by Pulse 100 100 100 Oximetry 06/14/20 06/14/20 06/14/20 00:36 00:41 00:46 Temperature Pulse Rate 84 89 87 Respiratory Rate Blood Pressure [Right] O2 Sat by Pulse 98 100 98 Oximetry 06/14/20 06/14/20 06/14/20 00:51 00:56 01:01 Temperature Pulse Rate 89 90 93 H Respiratory Rate Blood Pressure [Right] O2 Sat by Pulse 98 98 98 Oximetry 06/14/20 06/14/20 06/14/20 01:06 01:11 01:16 Temperature Pulse Rate 91 H 85 79 Respiratory Rate Blood Pressure [Right] O2 Sat by Pulse 98 99 99 Oximetry 06/14/20 06/14/20 06/14/20 01:21 01:26 01:31 Temperature Pulse Rate 81 77 90 Respiratory Rate Blood Pressure [Right] O2 Sat by Pulse 98 99 99 Oximetry 06/14/20 06/14/20 06/14/20 01:36 01:41 01:46 Temperature Pulse Rate 81 80 85 Respiratory Rate Blood Pressure [Right] O2 Sat by Pulse 99 98 99 Oximetry 06/14/20 06/14/20 06/14/20 01:51 01:56 02:01 Temperature Pulse Rate 84 84 79 Respiratory Rate Blood Pressure [Right] O2 Sat by Pulse 99 99 99 Oximetry 06/14/20 06/14/20 06/14/20 02:06 02:11 02:16 Temperature Pulse Rate 84 76 82 Respiratory Rate Blood Pressure [Right] O2 Sat by Pulse 100 100 99 Oximetry 06/14/20 06/14/20 06/14/20 02:21 02:26 02:31 Temperature Pulse Rate 85 79 82 Respiratory Rate Blood Pressure [Right] O2 Sat by Pulse 99 99 99 Oximetry 06/14/20 06/14/20 06/14/20 02:36 02:41 02:46 Temperature Pulse Rate 83 72 87 Respiratory Rate Blood Pressure [Right] O2 Sat by Pulse 100 100 100 Oximetry 06/14/20 06/14/20 06/14/20 02:51 02:56 03:01 Temperature Pulse Rate 75 67 79 Respiratory Rate Blood Pressure [Right] O2 Sat by Pulse 100 100 100 Oximetry 06/14/20 06/14/20 06/14/20 03:06 03:11 03:16 Temperature Pulse Rate 69 69 73 Respiratory Rate Blood Pressure [Right] O2 Sat by Pulse 100 100 100 Oximetry 06/14/20 06/14/20 06/14/20 03:21 03:26 03:31 Temperature Pulse Rate 67 69 68 Respiratory Rate Blood Pressure [Right] O2 Sat by Pulse 100 100 100 Oximetry 06/14/20 06/14/20 06/14/20 03:41 03:46 03:51 Temperature Pulse Rate 79 75 68 Respiratory Rate Blood Pressure [Right] O2 Sat by Pulse 97 97 100 Oximetry 06/14/20 06/14/20 06/14/20 03:56 04:01 04:06 Temperature Pulse Rate 73 71 82 Respiratory Rate Blood Pressure [Right] O2 Sat by Pulse 100 100 100 Oximetry 06/14/20 06/14/20 06/14/20 04:11 04:16 04:21 Temperature Pulse Rate 74 75 74 Respiratory Rate Blood Pressure [Right] O2 Sat by Pulse 100 99 99 Oximetry 06/14/20 06/14/20 06/14/20 04:26 04:31 04:36 Temperature Pulse Rate 83 75 83 Respiratory Rate Blood Pressure [Right] O2 Sat by Pulse 99 99 99 Oximetry 06/14/20 06/14/20 06/14/20 04:41 04:46 04:51 Temperature Pulse Rate 85 79 79 Respiratory Rate Blood Pressure [Right] O2 Sat by Pulse 99 99 99 Oximetry 06/14/20 06/14/20 06/14/20 04:56 05:01 05:06 Temperature Pulse Rate 86 85 84 Respiratory Rate Blood Pressure [Right] O2 Sat by Pulse 99 99 99 Oximetry 06/14/20 06/14/20 06/14/20 05:11 05:16 05:21 Temperature Pulse Rate 84 78 76 Respiratory Rate Blood Pressure [Right] O2 Sat by Pulse 99 99 99 Oximetry 06/14/20 06/14/20 06/14/20 05:26 05:31 05:36 Temperature Pulse Rate 82 77 90 Respiratory Rate Blood Pressure [Right] O2 Sat by Pulse 99 99 99 Oximetry 06/14/20 06/14/20 06/14/20 05:40 05:41 05:46 Temperature Pulse Rate 87 87 75 Respiratory Rate Blood Pressure [Right] O2 Sat by Pulse 93 100 100 Oximetry 06/14/20 06/14/20 06/14/20 05:51 05:56 06:01 Temperature Pulse Rate 75 75 85 Respiratory Rate Blood Pressure [Right] O2 Sat by Pulse 100 100 100 Oximetry 06/14/20 06/14/20 06/14/20 06:05 06:06 06:10 Temperature Pulse Rate 83 87 76 Respiratory Rate Blood Pressure [Right] O2 Sat by Pulse 94 81 L 90 Oximetry 06/14/20 06/14/20 06/14/20 06:11 06:16 06:21 Temperature Pulse Rate 81 88 84 Respiratory Rate Blood Pressure [Right] O2 Sat by Pulse 100 100 100 Oximetry 06/14/20 06/14/20 06/14/20 06:22 06:26 06:29 Temperature Pulse Rate 79 87 92 H Respiratory Rate Blood Pressure [Right] O2 Sat by Pulse 94 84 93 Oximetry 06/14/20 06/14/20 06/14/20 06:31 06:34 06:36 Temperature Pulse Rate 43 L 55 L Respiratory Rate Blood Pressure [Right] O2 Sat by Pulse 74 L 63 L 60 L Oximetry 06/14/20 06/14/20 06/14/20 06:41 06:43 06:46 Temperature Pulse Rate 71 65 79 Respiratory Rate Blood Pressure [Right] O2 Sat by Pulse 75 L 70 L 100 Oximetry 06/14/20 06/14/20 06/14/20 06:48 06:51 06:53 Temperature Pulse Rate 89 85 80 Respiratory Rate Blood Pressure [Right] O2 Sat by Pulse 70 L 98 93 Oximetry 06/14/20 06/14/20 06/14/20 06:56 07:01 07:06 Temperature Pulse Rate 79 72 87 Respiratory Rate Blood Pressure [Right] O2 Sat by Pulse 87 98 98 Oximetry 06/14/20 06/14/20 07:11 07:16 Temperature Pulse Rate 93 H 82 Respiratory Rate Blood Pressure [Right] O2 Sat by Pulse 99 100 Oximetry - Exam Breasts: normal Abdomen: Present: normal appearance, soft, other (GRAVID) Vulva: both: normal Uterus: Present: normal, other (GRAVID) FHR: category 1 Uterine Contraction Monitor Mode: External Cervical Dilatation: 5 Cervical Effacement Percentage: 70 station: -1 Uterine Contraction Frequency (min): IRREG Uterine Contraction Pattern: Irregular Uterine Tone Measurement Phase: Resting Uterine Contraction Intensity: Moderate Extremities: normal - Labs Labs: Abnormal Labs 06/13/20 23:16 WBC 13.2 H Hgb 9.8 L MCV 73 L MCH 22 L RDW 17.3 H Laboratory Results - last 24 hr 06/13/20 06/13/20 06/13/20 23:16 23:16 23:16 WBC 13.2 H RBC 4.39 Hgb 9.8 L Hct 32.1 MCV 73 L MCH 22 L MCHC 31 RDW 17.3 H Plt Count 304 Syphilis IgG Antibody Nonreactive HIV 1&2 Antibody Rapid HIV P24 Antigen Blood Type AB POSITIVE Antibody Screen Negative 06/13/20 23:16 WBC RBC Hgb Hct MCV MCH MCHC RDW Plt Count Syphilis IgG Antibody HIV 1&2 Antibody Rapid Non react HIV P24 Antigen Non react Blood Type Antibody Screen
[2020-06-14] MEDS ORDERED: LIDOCAINE (2%) 20 MG/1 ML VIAL 20 ML MDV INFILTRATI ONE (07:46)
[2020-06-14] MEDS ORDERED: AMPICILLIN/NS 1 GM/50 ML 1 GM/50 ML BAG IV SCH (08:30)
--- NOTE | 2020-06-14 08:45 | Procedure Note ---
OB Delivery Note - Vaginal Delivery presentation: vertex Delivery position: OA Intrapartum events: none Delivery induction: none Delivery augmentation: rupture of membranes, pitocin Delivery monitor: external FHT Route of delivery: Delivery placenta: spontaneous Delivery cord: nuchal cord, 3 umbilical vessels Episiotomy: none Delivery laceration: 1st degree, other (1st degree right labial tear) Delivery repair: vicryl Anesthesia: local, intravenous Delivery comments: Called to for delivery.SVE 10/100%/+1 and pt was pushing. of a live viable female in OA position. Nuchal cord x1 was reduced over infant's head and head followed by shoulders were delivered with ease. was placed on mom's chest for skin to skin bonding. Delayed cord clamping x 90 sec while nurse dried and stimulated baby. Afterwards cord was clamped times 2 and FOB was allowed to cut infant's cord. was then given to awaiting nurse for an asses. 8/9. Spontaneous delivery of intact placenta with CVX3. FF@ U2 with fundal massage and IV Pitocin. Exploration of tears revealed a 1st degree right labial tear which was repaired with a 3-0 vicryl on a CT1. EBL 250cc. FW 5 lbs .4 oz. Mom and baby stable. - Infant A at 1 minute: 8 at 5 minutes: 9 Infant Gender: Female (FW 5lbs .4 oz)
[2020-06-14] MEDS ORDERED: diphenhydrAMINE 25 MG CAP PO PRN (09:00)
[2020-06-14] MEDS ORDERED: PROMETHAZINE 25 MG TAB PO PRN (09:00)
[2020-06-14] MEDS ORDERED: ONDANSETRON 4 MG/2 ML INJ IV PRN (09:00)
[2020-06-14] MEDS ORDERED: LANOLIN/ZINC/DIMETHICONE (LANSINOH) 7 GM TP PRN (09:00)
[2020-06-14] MEDS ORDERED: WITCH HAZEL/ GLYCERIN PAD TP PRN (09:00)
[2020-06-14] MEDS ORDERED: PROMETHAZINE 25 MG RECT SUPP PR PRN (09:00)
[2020-06-14] MEDS ORDERED: OXYTOCIN DRIP 30 UNITS/500 ML BAG IV SCH (11:00)
[2020-06-14] MEDS: IBUPROFEN 600 MG TAB PO SCH ×3 (12:45→22:21)
[2020-06-14] MEDS: FERROUS SULFATE 325 MG TAB PO SCH ×2 (12:45→22:18)
[2020-06-14 19:50] LABS: Hematocrit 28.7 % (30.3-42.9); Hemoglobin 9.1 gm/dl (10.1-14.3)
[2020-06-14] MEDS ORDERED: MAGNESIUM HYDROXIDE (MOM) ORAL LIQD UDC PO PRN (22:00)
[2020-06-15] MEDS: IBUPROFEN 600 MG TAB PO SCH ×3 (06:08→21:38)
--- NOTE | 2020-06-15 12:01 | Progress Note ---
Assessment and Plan A: day 1 S/P . Anemia. P: Iron supplementation. Anticipate discharge home tomorrow if patient continues to do well. Subjective - Subjective Date of service: 06/15/20 Principal diagnosis: day 1 S/P Patient reports: appetite normal, voiding normally, pain well controlled, ambulating normally, no dizzy ambulation, no nauseated [place]: doing well Objective - Vital Signs Latest vital signs: Vital Signs Temp Pulse Resp BP BP Pulse Ox 06/15/20 07:55 97.8 F 82 18 109/68 06/15/20 04:30 98.6 F 74 16 110/67 06/15/20 01:24 97.8 F 82 18 111/69 100 06/14/20 19:30 98.6 F 71 18 102/77 06/14/20 15:54 98.2 F 82 18 103/64 99 Intake and Output 06/14/20 06/15/20 06/15/20 23:59 07:59 15:59 Intake Total 1140 540 120 Balance 1140 540 120 Intake: Oral 480 240 120 Intake, Free Water 660 300 Other: Total, Intake Amount 480 240 120 # Voids Void 1 1 1 - Exam Cardiovascular: Present: Regular rate, No murmurs Lungs: Present: Clear to auscultation Abdomen: Present: normal appearance, soft. Absent: distention, tenderness, guarding, rigidity Uterus: Present: normal, firm, fundal height below umbilicus. Absent: bogginess, tenderness Extremities: Present: normal. Absent: tenderness, edema - Labs Labs: Abnormal lab results 06/14/20 Range/Units 18:49 Hgb 9.1 L (10.1-14.3) gm/dl Hct 28.7 L (30.3-42.9) %
[2020-06-15] MEDS: FERROUS SULFATE 325 MG TAB PO SCH ×2 (13:08→21:37)
[2020-06-15] MEDS: PRENATAL VIT27-FE FUMARATE-FOLIC ACID VIT TAB PO SCH (13:09)
[2020-06-16] MEDS: IBUPROFEN 600 MG TAB PO SCH ×2 (04:17→10:07)
[2020-06-16] MEDS: FERROUS SULFATE 325 MG TAB PO SCH (10:07)
[2020-06-16] MEDS: PRENATAL VIT27-FE FUMARATE-FOLIC ACID VIT TAB PO SCH (10:07)
--- NOTE | 2020-06-16 11:03 | Progress Note ---
Assessment and Plan A: day 2 S/P . Anemia. P: Discharge patient home today. Discussed with patient discharge instructions and warning signs. Advised patient to avoid intercourse, lifting, housework, and driving. Advised patient to continue taking her vitamins and iron supplements at home. Patient voiced understanding of discharge instructions. Subjective - Subjective Date of service: 06/16/20 Principal diagnosis: day 2 S/P Patient reports: appetite normal, voiding normally, pain well controlled, flatus, ambulating normally, no dizzy ambulation, no nauseated [place]: doing well Objective - Vital Signs Latest vital signs: Vital Signs Temp Pulse Resp BP BP Pulse Ox 06/16/20 08:30 97.7 F 72 20 112/76 06/16/20 00:21 98.2 F 78 20 114/41 100 06/15/20 16:15 98 F 86 18 98/76 Intake and Output 06/15/20 06/16/20 06/16/20 23:59 07:59 15:59 Intake Total 680 120 240 Balance 680 120 240 Intake: Oral 320 120 240 Intake, Free Water 360 Other: Total, Intake Amount 320 120 240 # Voids Void 2 2 1 - Exam Cardiovascular: Present: Regular rate, No murmurs Lungs: Present: Clear to auscultation Abdomen: Present: normal appearance, soft, normal bowel sounds. Absent: distention, tenderness, guarding, rigidity Uterus: Present: normal, firm, fundal height below umbilicus. Absent: bogginess, tenderness Extremities: Present: normal. Absent: tenderness, edema
--- NOTE | 2020-06-16 11:05 | Discharge Summary ---
Providers - Providers Date of Admission: 06/13/20 22:24 Date of discharge: 06/16/20 Attending physician: MARIMAR HUSTON JR, MD Primary care physician: MARIMAR HUSTON JR, MD Hospitalization Reason for admission: active labor Delivery: Episiotomy: none Laceration: 1st degree Other procedures: none complications: none Discharge diagnosis: IUP at term delivered [place] baby: female Pertinent studies: Labs Hospital course: Normal hospital course. Condition at discharge: Good Disposition: DC-01 TO HOME OR SELFCARE - Discharge Diagnoses (1) Term delivered Status: Acute (2) Anemia Status: Acute Plan - Provider Discharge Summary Activity: routine, no sex for 6 weeks, no heavy lifting 4 weeks, no strenuous exercise Diet: routine Instructions: routine Additional instructions: Continue taking your vitamins and iron supplements at home. Call your doctor immediately for: * Fever > 100.5 * Heavy vaginal bleeding ( >1 pad per hour) * Severe persistent headache * Shortness of breath * Reddened, hot, painful area to leg or breast - Follow up plan Follow up: MARIMAR HUSTON JR, MD [Primary Care Provider] - 6 Weeks Forms: [facility] Discharge Summary
[2020-06-16 14:48] VITALS: BP 110/74
== END 2020-06-16 16:25 | disposition home or self-care (01) | DRG 775 ==
LOC: TRG 15:25 → APU 15:25 → TRG 22:23 → LD 22:24 → OB 06-14 11:19
PROVIDERS: ADMIT Obstetrics & Gynecology; ATTEND Obstetrics & Gynecology
PROC: 10907ZC Drainage of Amniotic Fluid, Therapeutic from Products of Conception, Via Natural or Artificial Opening (ICD-10-PCS; principal; 2020-06-14)
PROC: 10E0XZZ Delivery of Products of Conception, External Approach (ICD-10-PCS; 2020-06-14)
PROC: 0HQ9XZZ Repair Perineum Skin, External Approach (ICD-10-PCS; 2020-06-14)
DX: O69.1XX0 Labor and delivery complicated by cord around neck, with compression, not applicable or unspecified (principal); O70.0 First degree perineal laceration during delivery; O99.02 Anemia complicating childbirth; Z20.828 Contact with and (suspected) exposure to other viral communicable diseases; Z82.49 Family history of ischemic heart disease and other diseases of the circulatory system; Z37.0 Single live birth; Z3A.37 37 weeks gestation of pregnancy; Z83.3 Family history of diabetes mellitus; Z79.899 Other long term (current) drug therapy
CPT/HCPCS: 36415; 85014; 85018; 85027; 86592; 86850; 86900; 86901; 87806; G0378; J0290; J0595; J2590; J3010; J7120; U0003-CS